=== PATIENT | female | born 1990 | race African-American/Black ===

== ENCOUNTER 2020-09-12 13:11 | Inpatient (IN) | payer BC, OTHER ==
[2020-09-12] MEDS ORDERED: hydrALAZINE 20 MG/ML VIAL SLOW IVP PRN ×2 (13:27→13:50)
[2020-09-12] MEDS ORDERED: Acetaminophen 500 MG TAB PO PRN (13:50)
[2020-09-12] MEDS ORDERED: Ondansetron PF 4 MG/2 ML Vial IVP PRN (13:50)
[2020-09-12] MEDS ORDERED: Carboprost 250 MCG/ML AMP IM PRN (13:50)
[2020-09-12] MEDS ORDERED: Lidocaine 1% (PF) 30 ML VIAL SC PRN (13:50)
[2020-09-12] MEDS ORDERED: Methylergonovine 0.2 MG/ML VIAL IM PRN (13:50)
[2020-09-12] MEDS ORDERED: Diphenoxylate HCl/Atropine Tablet PO PRN ×2 (13:50)
[2020-09-12] MEDS ORDERED: Ibuprofen 800 MG TAB PO PRN (13:50)
[2020-09-12] MEDS ORDERED: Promethazine HCl 25 MG/ML VIAL IM PRN (13:50)
[2020-09-12] MEDS ORDERED: Misoprostol 200 MCG TAB PR PRN (13:50)
[2020-09-12] MEDS ORDERED: HYDROcodone/Acetaminophen 5/325 mg Tablet PO PRN ×2 (13:50)
[2020-09-12] MEDS ORDERED: Butorphanol Tartrate 1 MG/ML VIAL SLOW IVP PRN (13:50)
[2020-09-12] MEDS ORDERED: Penicillin G Potassium 5 MILL.UNITS in Sodium Chloride 0.9% 100 ML IVPB SCH (14:00)
[2020-09-12] MEDS ORDERED: NS w/ Oxytocin 30 units 500 ML IVPB PRN (14:31)
[2020-09-12 15:00] LABS: Mean Corpuscular HGB CONC 32.5 g/dL (32.0-36.0); Mean Corpuscular Hemoglobin 30.7 pg (27.0-33.0); Mean Corpuscular Volume 94.5 fl (81.6-98.3); Mean Platelet Volume 10.8 fl (7.4-10.4); Platelet Count 190 10x3/uL (150-450); RBC Distribution Width 14.6 % (11.5-14.5); Red Blood Cell (RBC) Count 3.26 10x6/uL (3.90-5.03)
[2020-09-12] MEDS: Lactated Ringer's 1,000 ML IV SCH ×2 (15:10→23:55)
[2020-09-12 15:32] LABS: Hep B Surf Ag Non-Reactive S/CO (NonReactive); Syphilis Antibody Nonreactive (Nonreactive); Syphilis Antibody Index 0.03 S/CO (<1.00 Non-Reactive)
[2020-09-12 15:44] VITALS: BMI 33.6
[2020-09-12 16:34] LABS: HBSAg Index 0.13 S/CO (0-0.99)
[2020-09-12] MEDS: Penicillin G 2.5 MILL.units 2.5 MILL.UNITS in Premix Bag 1 BAG IVPB SCH (20:47)
[2020-09-12] MEDS ORDERED: Penicillin G Potassium 5 MILL.UNITS VIAL ONE (21:22)
[2020-09-13] MEDS: Penicillin G 2.5 MILL.units 2.5 MILL.UNITS in Premix Bag 1 BAG IVPB SCH ×4 (02:05→15:26)
[2020-09-13] MEDS ORDERED: Fentanyl 4 mcg/Bup 0.1% Cadd 100 ML ONE (09:09)
[2020-09-13] MEDS: Lactated Ringer's 1,000 ML IV SCH (09:46)
[2020-09-13] MEDS ORDERED: Acetaminophen 325 MG TAB PO PRN (11:53)
[2020-09-13] MEDS ORDERED: Promethazine HCl 25 MG/ML VIAL IM PRN (11:53)
[2020-09-13] MEDS ORDERED: Naloxone HCl 0.4 mg/ml Vial IVP PRN ×2 (11:53)
[2020-09-13] MEDS ORDERED: Lactated Ringer's 500 ML IV PRN (11:53)
[2020-09-13] MEDS ORDERED: diphenhydrAMINE 50 MG/ML VIAL IVP PRN (11:53)
[2020-09-13] MEDS ORDERED: Ondansetron PF 4 MG/2 ML Vial IVP PRN ×2 (11:53→18:13)
[2020-09-13] MEDS ORDERED: Fentanyl 4 mcg/Bupivacaine 0.1% Cassette 100 ML EPIDURAL SCH (12:00)
[2020-09-13] MEDS ORDERED: Communication Order-Pharmacy FS SCH (12:00)
[2020-09-13] MEDS ORDERED: ePHEDrine Sulfate 50 MG/10 ML VIAL SLOW IVP PRN (12:10)
[2020-09-13 17:21] LABS: RapidComm Collect By NURSE
[2020-09-13] MEDS ORDERED: diphenhydrAMINE 25 MG CAP PO PRN (18:13)
[2020-09-13] MEDS ORDERED: Milk Of Magnesia 30 ML UDCUP PO PRN (18:13)
[2020-09-13] MEDS ORDERED: hydrALAZINE 20 MG/ML VIAL SLOW IVP PRN (18:13)
[2020-09-13] MEDS ORDERED: Preparation H Ointment 28 GM TUBE PR PRN (18:13)
[2020-09-13] MEDS ORDERED: Benzocaine-Menthol 82.5 ML CAN TOP PRN (18:13)
[2020-09-13] MEDS ORDERED: NS / Oxytocin 40 units/1000ml 1,000 ML IV SCH (18:13)
[2020-09-13] MEDS ORDERED: Bisacodyl 10 MG SUPP PR PRN (18:13)
[2020-09-13] MEDS ORDERED: Lanolin Ointment 7 GM TUBE TOP PRN (18:13)
[2020-09-13] MEDS: Ibuprofen 800 MG TAB PO SCH (21:11)
[2020-09-13] MEDS: Docusate Calcium (SURFAK) 240 MG CAP PO SCH (21:12)
[2020-09-14] MEDS: Penicillin G 2.5 MILL.units 2.5 MILL.UNITS in Premix Bag 1 BAG IVPB SCH (01:39)
[2020-09-14] MEDS: Lactated Ringer's 1,000 ML IV SCH (01:39)
[2020-09-14] MEDS: Ibuprofen 800 MG TAB PO SCH ×3 (06:00→22:50)
[2020-09-14 06:32] LABS: Mean Corpuscular HGB CONC 32.8 g/dL (32.0-36.0); Mean Corpuscular Hemoglobin 31.1 pg (27.0-33.0); Mean Corpuscular Volume 94.8 fl (81.6-98.3); Mean Platelet Volume 10.9 fl (7.4-10.4); Platelet Count 156 10x3/uL (150-450); RBC Distribution Width 14.4 % (11.5-14.5); Red Blood Cell (RBC) Count 2.89 10x6/uL (3.90-5.03); White Blood Cell (WBC) Count 10.8 10x3/uL (3.5-10.5)
[2020-09-14] MEDS: Docusate Calcium (SURFAK) 240 MG CAP PO SCH ×2 (08:38→22:50)
[2020-09-14] MEDS: Prenatal Vitamin 1 TAB PO SCH (08:38)
[2020-09-14] MEDS: Ferrous Sulfate 325 MG TAB PO SCH ×2 (08:38→17:51)
[2020-09-14] MEDS ORDERED: Dextrose 30 ML TUBE ONE (08:51)
[2020-09-14] MEDS ORDERED: Adacel (T-DAP) 0.5 ML SYRINGE IM ONE (09:00)
[2020-09-15] MEDS: Ibuprofen 800 MG TAB PO SCH (06:30)
[2020-09-15 07:52] VITALS: BP 113/63; TEMP 98.3
[2020-09-15] MEDS: Prenatal Vitamin 1 TAB PO SCH (08:25)
[2020-09-15] MEDS: Ferrous Sulfate 325 MG TAB PO SCH (08:25)
[2020-09-15] MEDS: Docusate Calcium (SURFAK) 240 MG CAP PO SCH (08:25)
[2020-09-15] MEDS ORDERED: Bupivacaine 0.25% HCL 30 ML VIAL ONE (11:00)
== END 2020-09-15 12:35 | disposition home or self-care (01) | DRG 805 ==
LOC: CSHLD/OP 13:11 → CSHLD 15:00 → CSHPP 09-13 19:55
PROVIDERS: ADMIT Obstetrics & Gynecology; ATTEND Obstetrics & Gynecology
PROC: 4A0HXCZ Measurement of Products of Conception, Cardiac Rate, External Approach (ICD-10-PCS; 2020-09-12)
PROC: 10E0XZZ Delivery of Products of Conception, External Approach (ICD-10-PCS; principal; 2020-09-13)
PROC: 0W8NXZZ Division of Female Perineum, External Approach (ICD-10-PCS; 2020-09-13)
PROC: 0KQM0ZZ Repair Perineum Muscle, Open Approach (ICD-10-PCS; 2020-09-13)
DX: O76 Abnormality in fetal heart rate and rhythm complicating labor and delivery (principal); O60.14X0 Preterm labor third trimester with preterm delivery third trimester, not applicable or unspecified; Z37.0 Single live birth; O34.211 Maternal care for low transverse scar from previous cesarean delivery; Z3A.36 36 weeks gestation of pregnancy; O42.913 Preterm premature rupture of membranes, unspecified as to length of time between rupture and onset of labor, third trimester; O70.1 Second degree perineal laceration during delivery
CPT/HCPCS: 36415; 51702; 82805; 85027; 86780; 86850; 86900; 86901; 87340; 88307; 99285; J2540; J2590; J3490; Q0163; S0020